=== PATIENT | female | born 2000 | race African-American/Black ===

== ENCOUNTER → 2021-04-13 | Outpatient (CLI) | payer OTHER ==
--- NOTE | 2021-04-13 15:14 | KCIC ---
EXAMINATION: Magnetic resonance imaging (MRI) of the lumbar spine without contrast 04/13/2021 1:30 PM HISTORY: Fusion October 2020. TECHNIQUE: Multiplanar multi-weighted MRI of the lumbar spine was performed without intravenous contr ast using the standard lumbar spine protocol. Contrast information: None administered. COMPARISON: None available. FINDINGS: The alignment of the lumbar spine is normal. Transitional anatomy identified on the left with partial sacralization of the S1 vertebral body. Superior endplate Schmorl's node identified at T12 with 15 p ercent height loss. There may be minimal associated edema. There are no compression fractures. The c onus medullaris terminates at the level of L1. The distal spinal cord signal intensity is normal. In tervertebral disks have normal height and signal intensity. There are no annular fissures identified. Limited views of the abdomen and pelvis show no soft tissue abnormality. The aorta is normal. Foll icular changes identified in the ovaries. L1-L2: The disc is normal in configuration. There is no facet arthropathy. There is no neuroforaminal stenosis. There is no spinal canal stenosis. L2-L3: The disc is normal in configuration. There is no facet arthropathy. There is no neuroforaminal stenosis. There is no spinal canal stenosis. L3-L4: The disc is normal in configuration. There is no facet arthropathy. There is no neuroforaminal stenosis. There is no spinal canal stenosis. L4-L5: The disc is normal in configuration. There is no facet arthropathy. There is no neuroforaminal stenosis. There is no spinal canal stenosis. L5-S1: The disc is normal in configuration. There is no facet arthropathy. There is no neuroforaminal stenosis. There is no spinal canal stenosis. IMPRESSION: 1. Transitional segment identified on the left L5-S1. No significant associated edema. 2. No significant disc herniation, neuroforaminal or spinal canal stenosis. 3. Superior endplate Schmorl's node at T12 with minimal height loss. There may be minimal associated edema which could reflect subacute to chronic findings. Electronically signed by: Angie Mcmahon MD (04/13/2021 3:12 PM) [id number]
== END ==
LOC: KCIC MRI 13:16
PROVIDERS: ATTEND Pediatrics
DX: Q76.49 Other congenital malformations of spine, not associated with scoliosis (principal); N83.8 Other noninflammatory disorders of ovary, fallopian tube and broad ligament; M51.44 Schmorl's nodes, thoracic region; M43.27 Fusion of spine, lumbosacral region
CPT/HCPCS: 72148